=== PATIENT | female | born 1960 | race Caucasian/White ===

== ENCOUNTER 2022-08-16 15:09 | Emergency (ER) | payer MEDICAID, SELFPAY ==
[2022-08-16] MEDS ORDERED: traMADol HCl 50 MG TAB ONE (15:36)
== END 2022-08-16 17:10 | disposition home or self-care (01) ==
LOC: NAV ERS 15:09
DX: S29.011A Strain of muscle and tendon of front wall of thorax, initial encounter (principal); F17.210 Nicotine dependence, cigarettes, uncomplicated; E03.9 Hypothyroidism, unspecified; Z79.899 Other long term (current) drug therapy; W19.XXXA Unspecified fall, initial encounter